=== PATIENT | female | born 1975 | race Hispanic/Latino ===

== ENCOUNTER 2020-08-27 17:44 | Emergency (ER) | payer MEDICARE, OTHER ==
[~2020-08-27] VITALS: Ht 162.6 cm; Wt 100.2 kg
== END 2020-08-27 20:00 | disposition home or self-care (01) ==
LOC: FSED 18:30
DX: I50.9 Heart failure, unspecified (principal); R06.02 Shortness of breath; Z94.0 Kidney transplant status; I10 Essential (primary) hypertension; E11.9 Type 2 diabetes mellitus without complications
CPT/HCPCS: 71045; 80053; 81025; 82553; 83880; 84484; 85025; 85379; 99283

== ENCOUNTER 2021-10-13 16:30 | Emergency (ER) | payer MEDICARE, OTHER ==
[~2021-10-13] VITALS: Ht 162.6 cm; Wt 100.2 kg
[2021-10-13] MEDS ORDERED: SODIUM CHLORIDE 0.9% 1000ML 1,000 ML IV STA (17:16)
[2021-10-13] MEDS ORDERED: ONDANSETRON HCL INJ 2MG/ML 2ML 2 MG/ML VIAL IV STA (17:16)
[2021-10-13 17:34] LABS: BASOPHILS % 0.2 % (0.0-1.0); EOSINOPHILS # (AUTO) 0.1 (0.0-0.4); HEMATOCRIT 39.3 % (34.2-44.1); HEMOGLOBIN 12.6 g/dL (12.0-16.0); LYMPHOCYTES % 11.6 % (18.0-39.1); MEAN CORPUSCULAR HEMOGLOBIN 28.4 pg (28-32); MEAN CORPUSCULAR HGB CONC 32.1 g/dL (31-35); MEAN CORPUSCULAR VOLUME 88.7 fL (81-99); MONOCYTES # (AUTO) 0.7 (0.2-0.8); MONOCYTES % 8.1 % (4.4-11.3); NEUTROPHILS % 78.5 % (38.7-80.0); PLATELET COUNT 225 x10e3/uL (140-360); RED BLOOD COUNT 4.43 x10e6/uL (3.6-5.1); RED CELL DISTRIBUTION WIDTH 12.5 % (11.7-14.4)
[2021-10-13 17:59] LABS: ALANINE AMINOTRANSFERASE 108 IU/L (0-55); ALBUMIN 3.2 g/dL (3.5-5.0); ALBUMIN/GLOBULIN RATIO 0.7 (0.8-2.0); ALKALINE PHOSPHATASE 248 IU/L (40-150); ANION GAP 16.8 mmol/L (8-16); BLOOD UREA NITROGEN 27 mg/dL (7-26); BUN/CREATININE RATIO 15 (6-25); CALCIUM 7.9 mg/dL (8.4-10.2); CARBON DIOXIDE 25 mmol/L (22-29); CHLORIDE 101 mmol/L (98-107); CREATINE KINASE 87 IU/L (29-168); CREATININE, SERUM 1.77 mg/dL (0.57-1.11); GLUCOSE 185 mg/dL (74-118); LIPASE 12 U/L (8-78); POTASSIUM 3.8 mmol/L (3.5-5.1); SODIUM 139 mmol/L (136-145)
[2021-10-13 19:06] VITALS: BP 132/75
== END 2021-10-13 19:08 | disposition home or self-care (01) ==
LOC: ER 16:33
DX: R05.9 Cough, unspecified (principal); J40 Bronchitis, not specified as acute or chronic; I10 Essential (primary) hypertension; E11.65 Type 2 diabetes mellitus with hyperglycemia; Z20.822 Contact with and (suspected) exposure to COVID-19
CPT/HCPCS: 36415; 71045; 74176; 80053; 82550; 82553; 83690; 84484; 84702; 85025; 99284; U0002

== ENCOUNTER 2021-11-01 19:18 | Inpatient (IN) | payer OTHER ==
[~2021-11-01] VITALS: Ht 162.6 cm; Wt 101.6 kg
[2021-11-01] MEDS ORDERED: ONDANSETRON HCL INJ 2MG/ML 2ML 2 MG/ML VIAL IV STA (19:54)
[2021-11-01] MEDS ORDERED: SODIUM CHLORIDE 0.9% 1000ML 1,000 ML IV ONE (20:00)
[2021-11-01] MEDS ORDERED: ACETAMINOPHEN 325 MG TAB PO ONE (20:00)
[2021-11-01] MEDS ORDERED: ACETAMINOPHEN 325 MG TAB ONE (20:10)
[2021-11-01] MEDS ORDERED: SODIUM CHLORIDE 0.9% 1000ML 1,000 ML ONE (20:10)
[2021-11-01 20:27] LABS: CLARITY,URINE SL CLOUDY (CLEAR); COLOR,URINE YELLOW (YELLOW); KETONES,URINE NEGATIVE (NEGATIVE); LEUKOCYTE ESTERASE ,URINE SMALL (NEGATIVE); NITRITE,URINE NEGATIVE (NEGATIVE); PROTEIN,URINE DIPSTICK >=300 (NEGATIVE); URINE UROBILINOGEN 0.2 mg/dL (0.2 - 1)
[2021-11-01 20:33] LABS: BASOPHILS # (AUTO) 0.1 (0.0-0.1); BASOPHILS % 0.2 % (0.0-1.0); EOSINOPHILS % 0.1 % (0.0-6.0); HEMATOCRIT 37.8 % (34.2-44.1); LYMPHOCYTES % 3.9 % (18.0-39.1); MEAN CORPUSCULAR HEMOGLOBIN 28.4 pg (28-32); MEAN CORPUSCULAR HGB CONC 31.7 g/dL (31-35); MEAN CORPUSCULAR VOLUME 89.6 fL (81-99); MONOCYTES # (AUTO) 1.2 (0.2-0.8); NEUTROPHILS # (AUTO) 22.1 (2.1-6.9); NEUTROPHILS % 90.2 % (38.7-80.0); PLATELET COUNT 237 x10e3/uL (140-360); RED BLOOD COUNT 4.22 x10e6/uL (3.6-5.1); RED CELL DISTRIBUTION WIDTH 13.1 % (11.7-14.4)
[2021-11-01 20:37] LABS: BACTERIA,URINE MODERATE /HPF; EPITHELIAL CELLS,URINE FEW /LPF; RBC,URINE 0-5 /HPF (0-5); WBC,URINE (MAN) 21-50 /HPF (0-5)
[2021-11-01 20:51] LABS: ALBUMIN/GLOBULIN RATIO 0.6 (0.8-2.0); ANION GAP 19.7 mmol/L (8-16); CALCIUM 8.1 mg/dL (8.4-10.2); CREATININE, SERUM 1.97 mg/dL (0.57-1.11); POTASSIUM 3.7 mmol/L (3.5-5.1)
[2021-11-01] MEDS: SODIUM CHLORIDE 0.9% 1000ML 1,000 ML IV SCH (22:29)
[2021-11-01] MEDS ORDERED: DEXTROSE 50% SYRINGE 50 ML IV PRN (23:30)
[2021-11-01] MEDS ORDERED: ONDANSETRON HCL INJ 2MG/ML 2ML 2 MG/ML VIAL IV PRN (23:30)
[2021-11-02] VITALS (9 sets, daily range): BP systolic 126–150; BP diastolic 58–70
[2021-11-02] MEDS ORDERED: ACETAMINOPHEN 325 MG TAB PO ONE (01:15)
[2021-11-02] MEDS ORDERED: ACETAMINOPHEN 325 MG TAB ONE (01:22)
[2021-11-02 01:56] LABS: CREATINE KINASE MB 0.9 ng/mL (0-5.0)
[2021-11-02] MEDS ORDERED: PROMETHAZINE HCL (IM) 25 MG/ML VIAL IM ONE (02:15)
[2021-11-02] MEDS ORDERED: PROMETHAZINE 12.5MG/ NACL 0.9% 50 ML ONE (02:25)
[2021-11-02] MEDS ORDERED: ACETAMINOPHEN 1000 MG/100 ML IV STA ×2 (02:51→02:59)
[2021-11-02] MEDS ORDERED: ACETAMINOPHEN 1000 MG/100 ML 100 ML IV ONE (02:59)
[2021-11-02] MEDS ORDERED: ACETAMINOPHEN 325 MG TAB PO PRN (05:00)
[2021-11-02] MEDS ORDERED: CARVEDILOL12.5 MG PO (06:31)
[2021-11-02] MEDS ORDERED: ADALAT CC60 MG PO (06:41)
[2021-11-02] MEDS ORDERED: CELLCEPT500 MG PO (06:41)
[2021-11-02] MEDS ORDERED: PREDNISONE5 MG PO (06:41)
[2021-11-02] MEDS ORDERED: ADALAT CC30 MG PO (06:41)
[2021-11-02] MEDS ORDERED: NOVOLOG100 UNIT/1 SC (06:46)
[2021-11-02] MEDS ORDERED: TORSEMIDE20 MG PO (06:46)
[2021-11-02] MEDS ORDERED: TRESIBA100 UNIT/1 SC (06:46)
[2021-11-02 07:04] LABS: BASOPHILS # (AUTO) 0.1 (0.0-0.1); BASOPHILS % 0.3 % (0.0-1.0); EOSINOPHILS % 0.2 % (0.0-6.0); HEMATOCRIT 34.4 % (34.2-44.1); HEMOGLOBIN 10.7 g/dL (12.0-16.0); LYMPHOCYTES # (AUTO) 0.7 (1.0-3.2); LYMPHOCYTES % 4.5 % (18.0-39.1); MEAN CORPUSCULAR HEMOGLOBIN 28.1 pg (28-32); MEAN CORPUSCULAR HGB CONC 31.1 g/dL (31-35); MEAN CORPUSCULAR VOLUME 90.3 fL (81-99); MONOCYTES # (AUTO) 1.1 (0.2-0.8); MONOCYTES % 7.1 % (4.4-11.3); NEUTROPHILS # (AUTO) 13.3 (2.1-6.9); NEUTROPHILS % 87.2 % (38.7-80.0); PLATELET COUNT 207 x10e3/uL (140-360); RED BLOOD COUNT 3.81 x10e6/uL (3.6-5.1); RED CELL DISTRIBUTION WIDTH 13.1 % (11.7-14.4)
[2021-11-02 07:21] LABS: ALBUMIN 2.6 g/dL (3.5-5.0); ALBUMIN/GLOBULIN RATIO 0.7 (0.8-2.0); ANION GAP 14.3 mmol/L (8-16); CALCIUM 7.5 mg/dL (8.4-10.2); CREATININE, SERUM 1.81 mg/dL (0.57-1.11); POTASSIUM 3.3 mmol/L (3.5-5.1)
[2021-11-02] MEDS: INSULIN REGULAR, HUMAN 100 UNIT/1 ML SQ SCH ×4 (07:30→22:31)
[2021-11-02 07:44] LABS: CREATINE KINASE MB 0.9 ng/mL (0-5.0)
[2021-11-02] MEDS: SODIUM CHLORIDE 0.9% 1000ML 1,000 ML IV SCH ×2 (09:01→16:29)
[2021-11-02] MEDS: MYCOPHENOLATE MOFETIL 250 MG CAP PO SCH (16:26)
[2021-11-02] MEDS: CARVEDILOL 12.5 MG TAB PO SCH (16:26)
[2021-11-02 17:16] LABS: CREATINE KINASE 75 IU/L (29-168)
[2021-11-02] MEDS ORDERED: POTASSIUM CHLORIDE 20 MEQ TAB CR PO STA (17:36)
[2021-11-02] MEDS: TACROLIMUS 1 MG CAP PO SCH (22:19)
[2021-11-02] MEDS: NIFEDIPINE CR 30 MG TAB PO SCH (22:19)
[2021-11-03] VITALS (8 sets, daily range): BP systolic 129–161; BP diastolic 59–64
[2021-11-03] MEDS: SODIUM CHLORIDE 0.9% 1000ML 1,000 ML IV SCH (04:35)
[2021-11-03 06:58] LABS: BASOPHILS % 0.4 % (0.0-1.0); EOSINOPHILS # (AUTO) 0.1 (0.0-0.4); EOSINOPHILS % 1.4 % (0.0-6.0); HEMATOCRIT 34.3 % (34.2-44.1); HEMOGLOBIN 10.6 g/dL (12.0-16.0); LYMPHOCYTES % 9.7 % (18.0-39.1); MEAN CORPUSCULAR HGB CONC 30.9 g/dL (31-35); MEAN CORPUSCULAR VOLUME 90.7 fL (81-99); MONOCYTES % 9.5 % (4.4-11.3); NEUTROPHILS # (AUTO) 7.9 (2.1-6.9); PLATELET COUNT 199 x10e3/uL (140-360); RED BLOOD COUNT 3.78 x10e6/uL (3.6-5.1); RED CELL DISTRIBUTION WIDTH 12.9 % (11.7-14.4)
[2021-11-03 07:18] LABS: ALBUMIN 2.6 g/dL (3.5-5.0); ALBUMIN/GLOBULIN RATIO 0.7 (0.8-2.0); ANION GAP 13.8 mmol/L (8-16); CALCIUM 7.7 mg/dL (8.4-10.2); CREATININE, SERUM 1.57 mg/dL (0.57-1.11); MAGNESIUM 1.6 MG/DL (1.3-2.1); POTASSIUM 3.8 mmol/L (3.5-5.1)
[2021-11-03] MEDS ORDERED: INSULIN REGULAR, HUMAN 100 UNIT/1 ML SQ SCH (07:30)
[2021-11-03] MEDS ORDERED: TORSEMIDE 10 MG TAB PO SCH (09:00)
[2021-11-03] MEDS ORDERED: TACROLIMUS 1 MG CAP PO SCH (09:00)
[2021-11-03] MEDS ORDERED: NIFEDIPINE CR 30 MG TAB PO SCH (09:00)
[2021-11-03] MEDS: INSULIN REGULAR, HUMAN 100 UNIT/1 ML SQ SCH ×4 (09:09→21:25)
[2021-11-03] MEDS: CARVEDILOL 12.5 MG TAB PO SCH ×2 (09:12→16:34)
[2021-11-03] MEDS: MYCOPHENOLATE MOFETIL 250 MG CAP PO SCH ×2 (09:15→16:35)
[2021-11-03] MEDS: TACROLIMUS 1 MG CAP PO SCH (21:20)
[2021-11-03] MEDS: NIFEDIPINE CR 30 MG TAB PO SCH (21:20)
[2021-11-04] VITALS: BP 137/58
[2021-11-04 04:00] VITALS: BP 136/64
[2021-11-04] MEDS ORDERED: TORSEMIDE 10 MG TAB PO SCH (09:00)
[2021-11-04] MEDS ORDERED: PREDNISONE 5 MG TAB PO SCH (09:00)
== END 2021-11-04 07:45 | disposition home or self-care (01) | DRG 871 ==
LOC: ER 19:53 → ERHOLD 23:49 → MED/SURG3 11-02 04:15
PROVIDERS: ADMIT Internal Medicine; ATTEND Internal Medicine
DX: A41.9 Sepsis, unspecified organism (principal); N17.0 Acute kidney failure with tubular necrosis; N39.0 Urinary tract infection, site not specified; T86.19 Other complication of kidney transplant; D84.9 Immunodeficiency, unspecified; I12.9 Hypertensive chronic kidney disease with stage 1 through stage 4 chronic kidney disease, or unspecified chronic kidney disease; E11.22 Type 2 diabetes mellitus with diabetic chronic kidney disease; N18.30 Chronic kidney disease, stage 3 unspecified; E66.01 Morbid (severe) obesity due to excess calories; Z68.38 Body mass index [BMI] 38.0-38.9, adult; E87.6 Hypokalemia; Z20.822 Contact with and (suspected) exposure to COVID-19; Z86.16 Personal history of COVID-19; R65.20 Severe sepsis without septic shock
CPT/HCPCS: 36415; 71045; 74176; 80053; 81001; 82550; 82553; 82948; 83605; 83735; 84484; 85025; 87040; 93005; 94799; 99285; J0696; J1817; J2405; J2550; J7030; J7507